=== PATIENT | female | born 1985 | race American Indian/Alaskan Native ===

== ENCOUNTER 2017-08-12 06:54 | Emergency (ER) | payer BC ==
[2017-08-12 07:03] VITALS: O2SAT 100
[2017-08-12 07:04] VITALS: BMI 23.1
[2017-08-12] MEDS ORDERED: Sodium Chloride 0.9% 1,000 ML IV STA (08:10)
--- NOTE | 2017-08-12 08:13 | ED PDOC ---
HPI:Nausea, Vomiting, Diarrhea Time Seen by Provider: 08/12/17 07:35 Chief Complaint (Nursing): GI Problem Chief Complaint (Provider): Diarrhea History Per: Patient History/Exam Limitations: no limitations Onset/Duration Of Symptoms: Days (3) Additional Complaint(s): Pt reports >50 episodes of nonbloody diarrhea X 3 days, daughter had similar sxs recently. Denies fever, nausea, vomiting, abdominal pain, symptoms. Past Medical History Reviewed: Nursing Documentation, Vital Signs Vital Signs: Last Vital Signs Temp 99.2 F 08/12/17 07:02 Pulse 110 H 08/12/17 07:02 Resp BP 129/88 08/12/17 07:02 Pulse Ox 100 08/12/17 07:02 - Medical History PMH: No Chronic Diseases - Family History Family History: States: Unknown Family Hx - Social History Current smoker - smoking cessation education provided: No Alcohol: None - Home Medications Home Medications: Ambulatory Orders Medication Instructions Recorded Ciprofloxacin [Cipro] 500 mg PO BID #9 tab 08/12/17 - Allergies Allergies/Adverse Reactions: Allergies Allergy/AdvReac Type Severity Reaction Status Date / Time peanut Allergy RASH Verified 08/12/17 07:45 Sulfa (Sulfonamide Allergy RASH Verified 08/12/17 07:45 Antibiotics) Review of Systems Constitutional: Negative for: Fever, Chills Cardiovascular: Negative for: Chest Pain, Palpitations Respiratory: Negative for: Cough, Shortness of Breath Gastrointestinal: Positive for: Diarrhea. Negative for: Nausea, Vomiting, Abdominal Pain Genitourinary Female: Negative for: Hematuria Skin: Negative for: Rash, Lesions Neurological: Negative for: Headache Physical Exam - Reviewed Nursing Documentation Reviewed: Yes Vital Signs Reviewed: Yes - Physical Exam Appears: Positive for: Well, No Acute Distress Skin: Positive for: Normal Color, Warm, Dry Cardiovascular/Chest: Positive for: Regular Rate, Rhythm Respiratory: Positive for: Normal Breath Sounds. Negative for: Rales, Rhonchi, Wheezing Gastrointestinal/Abdominal: Positive for: Normal Exam, Bowel Sounds, Soft. Negative for: Tenderness Back: Positive for: Normal Inspection. Negative for: L CVA Tenderness, R CVA Tenderness Extremity: Positive for: Normal ROM Neurologic/Psych: Positive for: Alert, Oriented - Laboratory Results Result Diagrams: 08/12/17 08:20 08/12/17 08:20 - ECG O2 Sat by Pulse Oximetry: 100 Medical Decision Making Medical Decision Makin yo female with diarrhea. - labs - IVF Disposition - Clinical Impression Clinical Impression: Diarrhea, UTI (urinary tract infection) - Disposition Referrals: Du Rodas [Family Provider] - Disposition: Routine/Home Disposition Time: 10:59 Condition: IMPROVED Prescriptions: Ciprofloxacin [Cipro] 500 mg PO BID #9 tab Instructions: Urinary Tract Infections in Adults, Diarrhea in Adolescents and Adults Forms: [facility] ([place]ic), [facility] ED School/Work Excuse
[2017-08-12 08:42] LABS: BASO % 0.3 % (0.0-2.0); EOS % 0.5 % (0.0-4.0); HEMOGLOBIN 13.8 g/dL (12.0-16.0); LYMPH # 0.6 K/uL (1.0-4.3); LYMPH % 9.5 % (20.0-40.0); MEAN CELL VOLUME 93.3 fl (81.0-99.0); MEAN CORPUSCULAR HEMOGLOBIN 32.1 pg (27.0-31.0); MEAN CORPUSCULAR HGB CONC 34.5 g/dL (33.0-37.0); MEAN PLATELET VOLUME 8.7 fl (7.2-11.7); MONO # 0.5 K/uL (0.0-0.8); MONO % 7.7 % (0.0-10.0); NEUT # 4.8 K/uL (1.8-7.0); PLATELET COUNT 239 K/uL (130-400); RED CELL DISTRIBUTION WIDTH 13.2 % (11.5-14.5); WHITE BLOOD COUNT 5.9 K/uL (4.8-10.8)
[2017-08-12 08:50] LABS: ALB/GLOB RATIO 1.2 (1.0-2.1); ALBUMIN 4.5 g/dL (3.5-5.0); ALT/SGPT 40 U/L (9-52); AST/SGOT 23 U/L (14-36); BLOOD UREA NITROGEN 11 mg/dl (7-17); CALCIUM 9.1 mg/dL (8.4-10.2); GFR AFRICAN-AMERICAN > 60; GFR NON-AFRICAN AMERICAN > 60
[2017-08-12 09:47] LABS: SQUAMOUS EPITHIAL 4 /hpf (0-5); URINE BACTERIA RARE (<OCC); URINE BILIRUBIN NEGATIVE (NEGATIVE); URINE BLOOD MODERATE (NEGATIVE); URINE CLARITY CLOUDY (Clear); URINE COLOR YELLOW (YELLOW); URINE GLUCOSE (UA) NEG (Normal); URINE LEUKOCYTE ESTERASE SMALL Leu/uL (Negative); URINE PROTEIN 30 mg/dL (NEGATIVE); URINE UROBILINOGEN 0.2-1.0 mg/dL (0.2-1.0)
[2017-08-12 11:18] VITALS: BP 124/65; PULSE 88; RESP 18; TEMP 97.8
[2017-08-12 12:11] LABS: ANISOCYTOSIS SLIGHT; BANDS 4 % (0-2); EOSINOPHIL 1 % (0-7); HYPOCHROMIC SLIGHT; LYMPHOCYTE 12 % (20-50); MONOCYTE 6 % (0-10); NEUTROPHIL 75 % (42-75); PLATELET ESTIMATE NORMAL (NORMAL); REACTIVE LYMPHOCYTES 2 % (0-0); TOTAL CELLS COUNTED 100
== END 2017-08-12 11:18 | disposition home or self-care (01) ==
LOC: H.ER 06:54
DX: N39.0 Urinary tract infection, site not specified (principal); R19.7 Diarrhea, unspecified
CPT/HCPCS: 80053; 81003; 81025; 85025; 99283; J7040